=== PATIENT | female | born 1980 | race Caucasian/White ===

== ENCOUNTER 2018-03-18 21:01 | Emergency (ER) | payer OTHER ==
[~2018-03-18] VITALS: Ht 167.6 cm; Wt 86.2 kg
[2018-03-18] MEDS ORDERED: FAMOTIDINE (20 MG) 20 MG TABLET ONE (21:12)
[2018-03-18] MEDS ORDERED: DEXAMETHASONE SOD PHOSPHATE 10 MG/ML VIAL ONE (21:12)
[2018-03-18] MEDS ORDERED: diphenhydrAMINE HCL 50 MG/ML VIAL ONE (21:12)
--- NOTE | 2018-03-18 21:25 | NUR ---
PT REC'C MEDICATION ORDERED AND TOLERATED PO WELL.
[2018-03-18] MEDS ORDERED: DEXAMETHASONE SOD PHOSPHATE 10 MG/ML VIAL IM ONE (21:30)
[2018-03-18] MEDS ORDERED: diphenhydrAMINE HCL 50 MG/ML VIAL IM ONE (21:30)
[2018-03-18] MEDS ORDERED: FAMOTIDINE (20 MG) 20 MG TABLET PO ONE (21:30)
--- NOTE | 2018-03-18 21:30 | NUR ---
PT DOES NOT WANT TO GIVE A URINE SAMPLE DUE TO BEING ON HER MENSES. DR MELVIN IS AWARE/NOTIFIED.
--- NOTE | 2018-03-18 21:30 | NUR ---
DR MELVIN IS AT THE BEDSIDE SPEAKING TO THE PT. PT IS C/O HER THROAT FEELING TIGHT S/P EATING SUSHI TONIGHT. PT IS SPEAKING IN FULL SENTENCES, NO S/S OF EDEMA NOTED. VSS.
--- NOTE | 2018-03-18 21:47 | NUR ---
PT IS TOLERATING SMALL SIPS OF WATER.
--- NOTE | 2018-03-18 21:55 | NUR ---
URINE SAMPLE SENT TO LAB.
[2018-03-18] MEDS ORDERED: IBUPROFEN 400 MG TABLET PO ONE (22:30)
[2018-03-18] MEDS ORDERED: ACETAMINOPHEN ES 500 MG TABLET PO ONE (22:30)
[2018-03-18] MEDS ORDERED: ACETAMINOPHEN ES 500 MG TABLET ONE (22:44)
[2018-03-18] MEDS ORDERED: IBUPROFEN 400 MG TABLET ONE (22:44)
--- NOTE | 2018-03-18 22:55 | NUR ---
PT STATED THAT SHE FELT BETTER.
--- NOTE | 2018-03-18 23:32 | NUR ---
Patient discharged to home in stable condition. Written and verbal after care instructions given. Patient verbalizes understanding of instruction AND RX. PT AMBULATED OUT WITH A STEADY GAIT. VSS. NAD NOTED.
[2018-03-18 23:33] VITALS: BP 122/87
== END 2018-03-18 23:33 | disposition home or self-care (01) ==
LOC: ER 21:03
DX: R07.0 Pain in throat (principal); E07.9 Disorder of thyroid, unspecified; Z91.013 Allergy to seafood
CPT/HCPCS: 84703-TC; J1100; J1200